=== PATIENT | male | born 2000 | race African-American/Black ===

== ENCOUNTER 2022-07-25 15:48 | Outpatient (CLI) | payer OTHER, SELFPAY ==
--- NOTE | 2022-07-25 16:00 | CRLHL7_ITS ---
For Patients: As a result of the Cures Act, medical imaging exams and procedure reports are released immediately into your electronic medical record. You may view this report before your referring provider. If you have questions, please contact your health care provider. Indication: Injury, pain Technique: Three views left thumb Comparison: None Findings: Bones: Alignment is normal. No fractures or bone lesions. Joint spaces: Unremarkable. Soft tissues: Unremarkable. Impression: No sign of acute injury. Dictated by Michael Holt MD @ 07/25/2022 4:14:36 PM (Electronically Signed)
== END 2022-07-25 15:49 | disposition home or self-care (01) ==
LOC: RAD 15:51
PROVIDERS: Visit Provider Physician Assistant Medical
DX: M79.645 Pain in left finger(s) (principal)
CPT/HCPCS: 73140

== ENCOUNTER 2024-12-31 12:52 | Outpatient (CLI) | payer OTHER, SELFPAY | END 2024-12-31 12:53 | disposition home or self-care (01) | PROVIDERS: Visit Provider Physician Assistant | DX: R07.9 Chest pain, unspecified (principal) | CPT/HCPCS: 84484; 85379 ==

== ENCOUNTER 2025-01-05 15:47 | Outpatient (CLI) | payer OTHER, SELFPAY | END 2025-01-05 15:48 | disposition home or self-care (01) | LOC: NFLDREF 15:48 | PROVIDERS: Visit Provider Family Medicine | DX: E11.9 Type 2 diabetes mellitus without complications (principal); I31.9 Disease of pericardium, unspecified | CPT/HCPCS: 80048 ==